=== PATIENT | male | born 2000 | race Caucasian/White ===

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

== ENCOUNTER 2020-02-27 14:48 | Emergency (ER) | payer OTHER ==
[2020-02-27 14:56] VITALS: BP 143/84
--- NOTE | 2020-02-27 15:38 | XRAY Report ---
Reason: Trauma Procedure Date: 02/27/2020 Accession Number: [id number] / [id number] Procedure: XR - Elbow 3 View RT CPT Code: Final Report FULL RESULT: EXAM: RIGHT ELBOW RADIOGRAPHY EXAM DATE: 02/27/2020 03:31 PM. CLINICAL HISTORY: Elbow pain post trauma. COMPARISON: None. TECHNIQUE: 3 views. FINDINGS: Bones: There is a nondisplaced fracture involving the radial head. Joints: There is displacement of the anterior and posterior fat pads. Soft Tissues: Normal. No soft tissue swelling. IMPRESSION: Nondisplaced fracture involving the radial head. RADIA
--- NOTE | 2020-02-27 15:45 | ED Physician Documentation ---
History of Present Illness - Stated complaint Stated Complaint: GLF - RT ARM INJ - Chief complaint Chief Complaint: Trauma Ext - History obtained from History obtained from: Patient - History of Present Illness Timing: Today Pain level max: 6 Pain level now: 5 - Additonal information Additional information: Patient was skateboarding today when he fell landing The right hand and elbow. Worse with movement and better with rest.. No head, neck, back pain. No numbness or tingling. Patient is right-handed. Review of Systems GI: denies: Vomiting Musculoskeletal: denies: Neck pain, Back pain Neurologic: denies: Head injury, LOC PD PAST MEDICAL HISTORY - Past Medical History Past Medical History: No Cardiovascular: None Respiratory: None Neuro: None Endocrine/Autoimmune: None GI: None : None HEENT: None Psych: None Musculoskeletal: None Derm: None - Past Surgical History Past Surgical History: No - Present Medications Home Medications: Ambulatory Orders Medication Instructions Recorded Confirmed Famotidine [Pepcid] 20 mg PO BID #30 tablet 02/19/19 Omeprazole 20 mg PO DAILY #30 tablet. 02/19/19 Sucralfate [Carafate] 1 gm PO ACHS #60 tablet 02/19/19 - Allergies Allergies/Adverse Reactions: Allergies Allergy/AdvReac Type Severity Reaction Status Date / Time No Known Drug Allergies Allergy Verified 02/23/19 19:36 - Social History Does the pt smoke?: Yes Smoking Status: Current every day smoker Does the pt drink ETOH?: No Does the pt have substance abuse?: No - Immunizations Immunizations are current?: Yes - POLST Patient has POLST: No PD ED PE NORMAL - Vitals Vital signs reviewed: Yes - General General: Alert and oriented X 3, No acute distress - HEENT HEENT: Atraumatic, Moist mucous membranes - Neck Neck: Supple, no meningeal sign, No bony TTP - Derm Derm: Warm and dry - Extremities Extremities: Other (Tender to palpation over the right radial head. Pain with pronation and supination of the right forearm. Neurovascular intact. Otherwise normal examination of the right arm.) - Neuro Neuro: Alert and oriented X 3 Results - Vitals Vitals: Vital Signs - 24 hr 02/27/20 14:53 Temperature 37.2 C Heart Rate 55 L Respiratory 18 Rate Blood Pressure 143/84 H O2 Saturation 98 Oxygen O2 Source Room air - Rads (name of study) Right elbow x-ray Radiology: Prelim report reviewed, EMP read contemporaneously, See rad report (Nondisplaced right radial head fracture) PD MEDICAL DECISION MAKING - ED course Complexity details: reviewed results, considered differential, d/w patient ED course: Patient with a nondisplaced right radial head fracture. Placed in a sling. Encouraged early range of movement. We will have him follow-up with orthopedics for further care. Patient counseled regarding signs and symptoms for which I believe and urgent re-evaluation would be necessary. Patient with good understanding of and agreement to plan and is comfortable going home at this time This document was made in part using voice recognition software. While efforts are made to proofread this document, sound alike and grammatical errors may occur. Patient declines pain medication here or for home. Departure - Departure Disposition: 01 Home, Self Care Clinical Impression: Right radial head fracture Qualifiers: Encounter type: initial encounter Fracture type: closed Fracture alignment: nondisplaced Qualified Code(s): S52.124A - Nondisplaced fracture of head of right radius, initial encounter for closed fracture Condition: Good Instructions: ED Fx Upper Ext Follow-Up: your,doctor in 1 week [Other] [facility] [Provider Group] Comments: Wear the sling for the next 3-4 days, then gently start to move the arm. Follow up with orthopedics in 1 week for repeat evaluation. You can use Motrin or Tylenol as needed for pain Discharge Date/Time: 02/27/20 15:54
== END 2020-02-27 15:54 | disposition home or self-care (01) ==
LOC: ED 14:48
DX: S52.124A Nondisplaced fracture of head of right radius, initial encounter for closed fracture (principal); W19.XXXA Unspecified fall, initial encounter; Y93.51 Activity, roller skating (inline) and skateboarding; F17.200 Nicotine dependence, unspecified, uncomplicated
CPT/HCPCS: 99282; 99283